=== PATIENT | male | born 1930 | race Caucasian/White ===

== ENCOUNTER 2017-10-18 06:51 | Inpatient (IN) | payer OTHER ==
--- NOTE | 2017-10-18 07:29 | PDOC ---
Attending Attestation - Resident Resident Name: Lulu Gutiérrez - ED Attending Attestation I have performed the following: I have examined & evaluated the patient, The case was reviewed & discussed with the resident, I agree w/resident's findings & plan, Exceptions are as noted - HPI HPI: 10/18/17 07:23 87 yo male with h/o aspiration pna, osteomyelitis, HTN, recently admitted to hospital, here today from home with for fever cough and feeling fatigue. pt is normally ambulatory but today was unable to walk due to weaknesss. no n/v had fever last pm . no abd pain. 10/18/17 09:45 - Physicial Exam PE: 10/18/17 07:25 awake alert dry mucous membranes. lungs with bilateral crackles at bases. normal resp effort. heart tachycardia, no mrg. abd soft mild periumbilical ttp, no rebound no guarding. skin warm and dry. right toe with ulcer small 0.5cm tip great toe. 2 + dp/ pt . no surroundin erythema. nuero moves all four ext. - Medical Decision Making 10/18/17 07:28 87 yo M with fever cough. differential uti, pneumonia, effusion. sepsis. renal failure. plan abx, tylenol ivf, cxr will admit ua lab lactates. Heart Score/ECG Review #1 General ECG Interpretation: Sinus Rhythm, Normal Intervals, No acute ischemic changes Compared to previous ECG there are: Other (tachycardic 117)
[2017-10-18] MEDS ORDERED: ACETAMINOPHEN 1000 MG/100 ML VIAL (NON FORMULARY) IVPB ONE (07:30)
--- NOTE | 2017-10-18 07:44 | PDOC ---
History of Present Illness - General Chief Complaint: Shortness of Breath Stated Complaint: WEAKNESS History Source: Patient, Spouse Exam Limitations: No Limitations - History of Present Illness Initial Comments: This is an 87 YOM with h/o sepsis, toe osteomyelitis (x2 episodes, most recent about 6 weeks ago, tx with several weeks of PO Augmentin), chronic dysphagia and aspiration PNA, UTI, PVD, HTN, and anxiety who p/w three days of malaise, fever, SOB, cough, and generalized weakness. The provides the bulk of his medical history. She notes that they are passing through town and had planned to drive home to [place] today, but she was unable to get him into the car this morning d/t his generalized weakness. She notes he has had a fever for the past two days, up to 100.3 at home today orally. She gave him Tylenol PO but he was only able to swallow one pill (underdosed) as well as his regular morning medications. She and the patient otherwise deny any new symptoms. Past History - Past Medical History Allergies/Adverse Reactions: Allergies Allergy/AdvReac Type Severity Reaction Status Date / Time No Known Allergies Allergy Verified 10/18/17 07:01 Home Medications: Ambulatory Orders Acetaminophen [Tylenol] 500 mg PO BID 10/18/17 Furosemide [Lasix] 40 mg PO BID 10/18/17 Losartan Potassium 50 mg PO BID 10/18/17 Prednisone 5 mg PO BID 10/18/17 Tramadol HCl 75 mg PO AM 10/18/17 - Suicide/Smoking/Psychosocial Hx Smoking History: Never smoked Have you smoked in the past 12 months: No Information on smoking cessation initiated: No Hx Alcohol Use: No Drug/Substance Use Hx: No Review of Systems - Review of Systems Able to Perform ROS?: Yes Constitutional: Yes: Fever, Malaise, Weakness. No: Unexplained wgt Loss HEENTM: No: Nose Congestion, Throat Pain Respiratory: Yes: Cough, Shortness of Breath Cardiac (ROS): No: Chest Pain, Palpitations ABD/GI: No: Constipated, Diarrhea, Nausea, Vomiting : No: Burning, Dysuria Musculoskeletal: No: Back Pain, Neck Pain Integumentary: No: Bruising, Rash Neurological: No: Headache, Numbness, Tingling, Dizziness Endocrine: No: Unexplained Weight Gain, Unexplained Weight Loss *Physical Exam - Vital Signs Last Vital Signs Temp Pulse Resp BP Pulse Ox 98.8 F 118 H 24 159/88 95 10/18/17 06:57 10/18/17 06:57 10/18/17 06:57 10/18/17 06:57 10/18/17 06:57 - Physical Exam General Appearance: Yes: Nourished, Appropriately Dressed, Other (awake and alert, pleasant elderly male whose face is flushed and who is accompanied by his at bedside, able to answer simple questions, states mentating and conversing at baseline, on nasal cannula). No: Apparent Distress HEENT: positive: EOMI, SHANTAL, Normal Voice, Hearing Grossly Normal. negative: Scleral Icterus (R), Scleral Icterus (L), Muffled/Hoarse voice, Nasal Congestion Neck: positive: Trachea midline, Supple. negative: Tender, Rigid Respiratory/Chest: positive: Lungs Clear, Normal Breath Sounds. negative: Respiratory Distress, Crackles, Rhonchi, Stridor, Wheezing Cardiovascular: positive: Regular Rhythm, Regular Rate, S1, S2, Edema (trace BLE but in compression stalkings). negative: JVD, Murmur Vascular Pulses: Dorsalis-Pedis (R): 2+, Doralis-Pedis (L): 2+ Gastrointestinal/Abdominal: positive: Normal Bowel Sounds, Tender (mild epigastric and umbilical ttp), Soft, Protuberent. negative: Organomegaly, Pulsatile Mass, Guarding, Hernia Musculoskeletal: positive: Normal Inspection. 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 negative: Tender, Cyanosis Integumentary: positive: Normal Color, Dry, Other (patient is overly warm to the touch). 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 negative: Facial Droop, Numbness, Confused Heart Score/ECG Review #1 Sinus tachycardia, rate 117, normal axis and intervals, no ischemic changes ED Treatment Course - LABORATORY CBC & Chemistry Diagram: 10/18/17 07:45 10/18/17 07:45 - RADIOLOGY Radiology Studies Ordered: Category Date Time Status FOOT-LEFT [RAD] Stat Radiology 10/18/17 07:37 Ordered FOOT-RIGHT [RAD] Stat Radiology 10/18/17 07:37 Ordered TOE(S) LEFT [RAD] Stat Radiology 10/18/17 07:37 Ordered TOE(S) RIGHT [RAD] Stat Radiology 10/18/17 07:37 Ordered Medical Decision Making - Medical Decision Making Elderly patient p/w fever, hypotension, and tachycardia. Initial Vital Signs Temp Pulse Resp BP Pulse Ox 98.8 F 118 H 24 159/88 95 10/18/17 06:57 10/18/17 06:57 10/18/17 06:57 10/18/17 06:57 10/18/17 06:57 Exam: On nasal cannula, awake and alert, able to answer simple questions, heart and lungs normal, abdomen protuberant and mild epigastric and umbilical ttp, compression stalkings on, bilateral great toes with chronic-appearing ulcers with mild crusting and mild surrounding erythema DDX IBNLT: sepsis/shock (i.e. osteomyelitis, UTI, PNA, cellulitis, meningitis, etc), PE, ischemia (ACS), medication effect, malignant hyperthermia, serotonin syndrome, etc. W/U ordered: EKG CXR CBCD CMP Mg Phos Cardiac panel Lactate BCx UA UCx TX ordered: IVF O2 Ofirmev EKG: Sinus tachycardia, rate 117, normal axis and intervals, no ischemic changes CXR: NADP Laboratory Tests 10/18/17 10/18/17 10/18/17 07:45 07:45 07:45 WBC 10.2 H RBC 4.02 Hgb 12.9 Hct 38.6 MCV 96.1 H MCH 32.1 MCHC 33.4 RDW 15.2 Plt Count 302 MPV 6.8 L Neutrophils % 78.4 Lymphocytes % 11.1 Monocytes % 8.7 Eosinophils % 1.4 Basophils % 0.4 PT with INR 11.20 INR 0.99 PTT (Actin FS) 30.4 VBG pH POC VBG pCO2 POC VBG pO2 Mixed VBG HCO3 Sodium 141 Potassium 3.9 Chloride 106 Carbon Dioxide 26 Anion Gap 9 BUN 22 H Creatinine 1.0 Creat Clearance w eGFR > 60 Random Glucose 109 H Lactic Acid Calcium 8.5 Total Bilirubin 0.7 AST 31 ALT 64 Alkaline Phosphatase 59 Troponin I Total Protein 6.1 L Albumin 2.9 L 10/18/17 10/18/17 10/18/17 07:45 07:45 08:00 WBC RBC Hgb Hct MCV MCH MCHC RDW Plt Count MPV Neutrophils % Lymphocytes % Monocytes % Eosinophils % Basophils % PT with INR INR PTT (Actin FS) VBG pH 7.45 H POC VBG pCO2 39.0 POC VBG pO2 44.9 Mixed VBG HCO3 26.1 H Sodium Potassium Chloride Carbon Dioxide Anion Gap BUN Creatinine Creat Clearance w eGFR Random Glucose Lactic Acid 2.7 H* Calcium Total Bilirubin AST ALT Alkaline Phosphatase Troponin I < 0.02 Total Protein Albumin Repeat VS: Reassessment: The patient is unsafe for discharge at this time. They require further hospital observation, workup, and treatment. Microblog sent to [facility] for admission. Spoke with [facility], in agreement patient to be admitted to: Med/Surg IP. Decision to Admit order placed to [facility] covering attending Dr. Dixon. *DC/Admit/Observation/Transfer Diagnosis at time of Disposition: Generalized weakness Sepsis Qualifiers: Sepsis type: sepsis due to unspecified organism Qualified Code(s): A41.9 - Sepsis, unspecified organism - Discharge Dispostion Condition at time of disposition: Guarded Decision to Admit order: Yes - Referrals - Patient Instructions - Post Discharge Activity
[2017-10-18] MEDS ORDERED: ACETAMINOPHEN INJECTION 100 ML IVPB ONE (08:02)
[2017-10-18 08:04] LABS: VENOUS PH 7.45 (7.32-7.42); VENOUS PO2 44.9 mmHg (28-48)
[2017-10-18 08:08] LABS: BASO % 0.4 % (0-2.0); EOS % 1.4 % (0-4.5); HEMATOCRIT 38.6 % (35.4-49); HEMOGLOBIN 12.9 GM/dL (11.7-16.9); LYMPH % 11.1 % (8-40); MCH 32.1 pg (25.7-33.7); MCHC 33.4 g/dl (32.0-35.9); MEAN CELL VOLUME 96.1 fl (80-96); MEAN PLT VOLUME 6.8 fl (7.5-11.1); MONO % 8.7 % (3.8-10.2); NEUT % 78.4 % (42.8-82.8); PLATELET COUNT 302 K/MM3 (134-434); RBC 4.02 M/mm3 (4.00-5.60); RDW 15.2 % (11.9-15.9); WHITE BLOOD COUNT 10.2 K/mm3 (4.0-10.0)
[2017-10-18 08:24] LABS: INR 0.99 (0.82-1.09); PROTHROMBIN TIME (PATIENT) 11.2 SEC (9.7-13.0)
[2017-10-18 08:26] LABS: ACTIVATED PTT 30.4 SECONDS (26.9-34.4)
[2017-10-18] MEDS ORDERED: SODIUM CHLORIDE 0.9% 1000 ML INFUS.BAG IV ONE (08:32)
[2017-10-18 08:37] LABS: ALBUMIN 2.9 g/dl (3.4-5.0); ANION GAP 9 (8-16); BLOOD UREA NITROGEN 22 mg/dL (7-18); CALCIUM 8.5 mg/dL (8.5-10.1); CHLORIDE 106 mmol/L (98-107); CO2 26 mmol/L (21-32); GLUCOSE,RANDOM 109 mg/dL (74-106); POTASSIUM 3.9 mmol/L (3.5-5.1); SODIUM 141 mmol/L (136-145)
[2017-10-18 08:41] LABS: ALK PHOS 59 U/L (45-117); BILIRUBIN,TOTAL 0.7 mg/dL (0.2-1.0); SGOT/AST 31 U/L (15-37); SGPT/ALT 64 U/L (12-78); TOT PROT 6.1 g/dl (6.4-8.2)
[2017-10-18] MEDS ORDERED: VANCOMYCIN 1,000 MG in DEXTROSE 5%-WATER - 250 ML IVPB ONE (09:36)
[2017-10-18] MEDS ORDERED: PIPERACILLIN/TAZOB 4.5 GM 4.5 GM in DEXTROSE 5%-WATER 100 ML IVPB ONE (09:36)
[2017-10-18] MEDS ORDERED: VANCOMYCIN 1 GRAM (PRE-DOCKED) 1,000 MG/250 ML BAG IVPB ONE (10:06)
[2017-10-18] MEDS ORDERED: PIPERACILLIN/TAZOB 4.5 GM 4.5 GM/100 ML BAG IVPB ONE (10:06)
[2017-10-18] MEDS ORDERED: SODIUM CHLORIDE 0.9% 500 ML INFUS.BAG IV ONE (10:34)
[2017-10-18] MEDS ORDERED: FUROSEMIDE 100 MG/10 ML INJECTABLE VIAL IVPB ONE (10:58)
[2017-10-18] MEDS ORDERED: methylPREDNISolone NA SUCC 40 MG/1 ML VIAL IVPUSH ONE (10:58)
[2017-10-18] MEDS ORDERED: methylPREDNISolone NA SUCC 40 MG/1 ML VIAL ONE (11:16)
[2017-10-18] MEDS: SODIUM CHLORIDE 1,000 ML IV SCH ×2 (12:56→22:52)
[2017-10-18] MEDS: HEPARIN NA (PORCINE) 5,000 UNITS/ML 1ML VIAL SQ SCH ×3 (13:00→21:27)
[2017-10-18] MEDS ORDERED: HEPARIN NA (PORCINE) 5,000 UNITS/ML 1ML VIAL ONE (13:08)
--- NOTE | 2017-10-18 13:16 | HP ---
CHIEF COMPLAINT: weakness, cough, malaise, fever PCP: PCP in [place] HISTORY OF PRESENT ILLNESS: History taken from pt's . 87 y/o M with PMH dementia, dysphagia w/ mult aspiration PNA, R great toe osteomyelitis (x2 episodes, most recent about 6 weeks ago, tx with several weeks of PO Augmentin), PVD, UTI, HTN, anxiety, baseline incontinence who presented to ED brought by because of 3 d of malaise, cough productive of green sputum (last night only), fever 100.3 measured at home, weakness, decreased PO intake last night, and constipation (no BM x 3 d). Pt was recently hospitalized for aspiration PNA in [place] for 5 days. ER course was notable for: (1) WBC 10.2, LA 2.7(dropped ot 1.9 after 2L NS), VBG: ph 7.45, pCO2 39, pO2 44.9, HCO3 26.1 (2) CXR atalectasis (3) Recent Travel: from [place] PAST MEDICAL HISTORY: dementia, dysphagia w/ mult aspiration PNA, R great toe osteomyelitis (x2 episodes, most recent about 6 weeks ago, tx with several weeks of PO Augmentin) , PVD, UTI, HTN, anxiety PAST SURGICAL HISTORY: Social History: Smoking: denies Alcohol: denies Drugs: denies Family History: denies Allergies No Known Allergies Allergy (Verified 10/18/17 07:01) HOME MEDICATIONS: Home Medications Medication Instructions Recorded Acetaminophen [Tylenol] 500 mg PO BID 10/18/17 Furosemide [Lasix] 40 mg PO BID 10/18/17 Losartan Potassium 50 mg PO BID 10/18/17 Prednisone 5 mg PO BID 10/18/17 Tramadol HCl 75 mg PO AM 10/18/17 REVIEW OF SYSTEMS CONSTITUTIONAL: fever, generalized weakness, malaise, loss of appetite Absent: , chills, diaphoresis, weight change HEENT: Absent: rhinorrhea, nasal congestion, throat pain, throat swelling, difficulty swallowing, mouth swelling, ear pain, eye pain, visual changes CARDIOVASCULAR: Absent: chest pain, syncope, palpitations, irregular heart rate, lightheadedness , peripheral edema RESPIRATORY: Absent: cough, shortness of breath, dyspnea with exertion, orthopnea, wheezing, stridor, hemoptysis GASTROINTESTINAL: constipation Absent: abdominal pain, abdominal distension, nausea, vomiting, diarrhea, , melena, hematochezia GENITOURINARY: Absent: dysuria, frequency, urgency, hesitancy, hematuria, flank pain, genital pain MUSCULOSKELETAL: Absent: myalgia, arthralgia, joint swelling, back pain, neck pain SKIN: Absent: rash, itching, pallor HEMATOLOGIC/IMMUNOLOGIC: Absent: easy bleeding, easy bruising, lymphadenopathy, frequent infections ENDOCRINE: Absent: unexplained weight gain, unexplained weight loss, heat intolerance, cold intolerance NEUROLOGIC: Absent: headache, focal weakness or paresthesias, dizziness, unsteady gait, seizure, mental status changes, bladder or bowel incontinence PSYCHIATRIC: Absent: anxiety, depression, suicidal or homicidal ideation, hallucinations. PHYSICAL EXAMINATION Vital Signs - 24 hr 10/18/17 10/18/17 10/18/17 06:57 08:15 08:33 Temperature 98.8 F 100.1 F H Pulse Rate 118 H Pulse Rate [ Apical] Respiratory 24 Rate Blood Pressure 159/88 Blood Pressure [Right Arm] O2 Sat by Pulse 95 98 Oximetry (%) 10/18/17 11:07 Temperature Pulse Rate Pulse Rate [ 103 H Apical] Respiratory 19 Rate Blood Pressure Blood Pressure 177/86 [Right Arm] O2 Sat by Pulse 96 Oximetry (%) GENERAL: Awake, alert, oriented to person, in no acute distress. HEAD: Normal with no signs of trauma. EYES: extraocular movements intact, sclera anicteric, conjunctiva clear. No lid lag. EARS, NOSE, THROAT: oropharynx clear without exudates. Moist mucous membranes. NECK: Normal range of motion, supple without lymphadenopathy, JVD, or masses. LUNGS: Breath sounds equal, clear to auscultation bilaterally. No wheezes, and no crackles appreciated. No accessory muscle use. HEART: Regular rate and rhythm, normal S1 and S2 without murmur, rub or gallop. ABDOMEN: Soft, nontender, distended, tympanic, normoactive bowel sounds, no guarding, no rebound, no masses. No hepatomegaly or splenomegaly. MUSCULOSKELETAL: Normal range of motion at all joints. No bony deformities or tenderness. No CVA tenderness. UPPER EXTREMITIES: 2+ pulses, warm, well-perfused. No cyanosis. No clubbing. No peripheral edema. LOWER EXTREMITIES: trace pulses, with chronic ulcer of R great toe, and small ulcer of L great toe. No calf tenderness. No peripheral edema. NEUROLOGICAL: Uncooperative. Normal speech. PSYCHIATRIC: Cooperative. Good eye contact. Appropriate mood and affect. SKIN: Warm, dry, normal turgor, no rashes or lesions noted, normal capillary refill. Laboratory Results - last 24 hr 10/18/17 10/18/17 10/18/17 07:45 07:45 07:45 WBC 10.2 H RBC 4.02 Hgb 12.9 Hct 38.6 MCV 96.1 H MCH 32.1 MCHC 33.4 RDW 15.2 Plt Count 302 MPV 6.8 L Neutrophils % 78.4 Lymphocytes % 11.1 Monocytes % 8.7 Eosinophils % 1.4 Basophils % 0.4 PT with INR 11.20 INR 0.99 PTT (Actin FS) 30.4 VBG pH POC VBG pCO2 POC VBG pO2 Mixed VBG HCO3 Sodium 141 Potassium 3.9 Chloride 106 Carbon Dioxide 26 Anion Gap 9 BUN 22 H Creatinine 1.0 Creat Clearance w eGFR > 60 Random Glucose 109 H Lactic Acid Calcium 8.5 Total Bilirubin 0.7 AST 31 ALT 64 Alkaline Phosphatase 59 Troponin I Total Protein 6.1 L Albumin 2.9 L 10/18/17 10/18/17 10/18/17 07:45 07:45 08:00 WBC RBC Hgb Hct MCV MCH MCHC RDW Plt Count MPV Neutrophils % Lymphocytes % Monocytes % Eosinophils % Basophils % PT with INR INR PTT (Actin FS) VBG pH 7.45 H POC VBG pCO2 39.0 POC VBG pO2 44.9 Mixed VBG HCO3 26.1 H Sodium Potassium Chloride Carbon Dioxide Anion Gap BUN Creatinine Creat Clearance w eGFR Random Glucose Lactic Acid 2.7 H* Calcium Total Bilirubin AST ALT Alkaline Phosphatase Troponin I < 0.02 Total Protein Albumin 10/18/17 10:41 WBC RBC Hgb Hct MCV MCH MCHC RDW Plt Count MPV Neutrophils % Lymphocytes % Monocytes % Eosinophils % Basophils % PT with INR INR PTT (Actin FS) VBG pH POC VBG pCO2 POC VBG pO2 Mixed VBG HCO3 Sodium Potassium Chloride Carbon Dioxide Anion Gap BUN Creatinine Creat Clearance w eGFR Random Glucose Lactic Acid 1.9 Calcium Total Bilirubin AST ALT Alkaline Phosphatase Troponin I Total Protein Albumin ASSESSMENT/PLAN: Pt is an 87 y/o M with PMH dementia, dysphagia w/ mult aspiration PNA, R great toe osteomyelitis (x2 episodes, most recent about 6 weeks ago, tx with several weeks of PO Augmentin), PVD, UTI, HTN, anxiety, baseline incontinence who presented to ED brought by because of 3 d of malaise, cough productive of green sputum (last night only), fever 100.3 measured at home, weakness, decreased PO intake last night, and constipation (no BM x 3 d). Pt was admitted for sepsis 2/2 HCAP. #Sepsis 2/2 HCAP -recent hospitalization in [place] fo 5 d for Aspiration PNA -fever, malaise, weakness, cough -leukocytosis, LA 2.7 -> 1.9 s/p 2L NS -CXR sig for atalectasis -Got Vanc/Zosyn in ED -ID consult -Zosyn for tomorrow. f/u ID recs on abx -NS -f/u repeat CBC in am -f/u UA. Pt urinated just prior to arriving in ED. Pending urine collection for UA. ED placed condom cath #Osetomyelitis -R great toe -Multiple prior episode -recently treated 6wk ago with several weeks Augmentin #PVD -poor pulses b/l LE -ulcers & osteo -monitored out pt with PCP in [place] #HTN -Resume home Losartan with holding parameters -Hold lasix in setting of sepsis #Dementia -managed by PCP as outpt -according to , mental status waxes and wanes #FEN -NS @ 85 -lytes wnl -dysphagia diet #PPx -HSQ TID #Dispo -admitted for sepsis 2/2 hcap Art Hays MD PGY-1 IM Visit type - Emergency Visit Emergency Visit: Yes Care time: The patient presented to the Emergency Department on the above date and was hospitalized for further evaluation of their emergent condition. - New Patient This patient is new to me today: Yes Date on this admission: 10/18/17 - Critical Care Critical Care patient: No Hospitalist Screening - Colonoscopy Questionnaire Colonoscopy Questionnaire: Colonoscopy Questionnaire - Patient: 50 - 75 years old and never had a screening colonoscopy: No History of colon or rectal polyps, or CA: No History of IBD, Crohn's disease or UC: No History of abdominal radiation therapy as a child: No - Relative: 1 with colon or rectal CA, or polyps at age 60 or younger: No Colon or rectal CA diagnosed at age 45 or younger: No Multiple relatives with colon or rectal CA: No - Outcome: Screening Result: Negative Screen
[2017-10-18] MEDS ORDERED: GLYCERIN 1 RECTAL SUPPOSITORY, ADULT PR ONE (13:29)
[2017-10-18 14:33] LABS: URINE APPEARANCE CLEAR; URINE BILIRUBIN NEGATIVE (<2.0 mg/dL); URINE COLOR LTYELLOW; URINE GLUCOSE (UA) NEGATIVE (NEGATIVE); URINE KETONE NEGATIVE (NEGATIVE); URINE LEUK ESTERASE NEGATIVE (NEGATIVE); URINE NITRITE NEGATIVE (NEGATIVE); URINE PROTEIN NEGATIVE (NEGATIVE); URINE UROBILINOGEN NEGATIVE mg/dL (0.2-1.0)
[2017-10-18 14:53] LABS: EPI CELLS RARE /HPF (FEW)
--- NOTE | 2017-10-18 15:09 | PN ---
Teaching Attending Note Name of Resident: Art Hays ATTENDING PHYSICIAN STATEMENT I saw and evaluated the patient. I reviewed the resident's note and discussed the case with the resident. I agree with the resident's findings and plan as documented. SUBJECTIVE: OBJECTIVE: ASSESSMENT AND PLAN: this is an 87 y/o M with PMH moderate dementia, dysphagia w/ mult aspiration PNA , R great toe osteomyelitis (x2 episodes, most recent about 6 weeks ago, tx with several weeks of PO Augmentin), PVD, UTI, HTN, anxiety, baseline incontinence who presented to ED brought by because of 3 d of malaise, cough productive of green sputum (last night only), fever 100.3 measured at home , weakness, decreased PO intake last night, and constipation (no BM x 3 d). Pt was admitted for sepsis 2/2 HCAP. #Sepsis 2/2 HCAP -recent hospitalization in [place] fo 5 d for Aspiration PNA -fever, malaise, weakness, cough -leukocytosis, LA 2.7 -> 1.9 s/p 2L NS -CXR sig for atalectasis -Got Vanc/Zosyn in ED -ID consult -f/u UA. #Osetomyelitis -R great toe -Multiple prior episode -recently treated 6wk ago with several weeks Augmentin #PVD -poor pulses b/l LE -ulcers & osteo #HTN -Resume home Losartan with holding parameters -Hold lasix in setting of sepsis #Dementia -managed by PCP as outpt -according to , mental status waxes and wanes #PPx -HSQ TID
[2017-10-18] MEDS ORDERED: PIPERACILLIN/TAZOB 3.375 GM/50 ML PRE-DOCKED IVPB SCH (18:00)
[2017-10-18] MEDS ORDERED: DEXTROSE 5%-WATER - 50 ML IVPB ONE (19:53)
[2017-10-18] MEDS ORDERED: PIPERACILLIN/TAZOBACTAM 3.375 GM VIAL IVPB ONE (19:53)
[2017-10-18] MEDS: PIPERACILLIN/TAZOB 3.375 GM 3.375 GM in DEXTROSE 5%-WATER - 50 ML IVPB SCH (19:59)
[2017-10-18] MEDS: LOSARTAN POTASSIUM 50 MG TABLET (FP) PO SCH (21:26)
[2017-10-18] MEDS: ACETAMINOPHEN 325 MG TABLET (FP) PO SCH (21:26)
[2017-10-18 23:10] VITALS: BMI 26.8
[2017-10-19] MEDS ORDERED: PIPERACILLIN/TAZOBACTAM 3.375 GM VIAL IVPB ONE ×2 (03:29→18:05)
[2017-10-19] MEDS ORDERED: DEXTROSE 5%-WATER - 50 ML IVPB ONE ×2 (03:30→18:05)
[2017-10-19] MEDS: PIPERACILLIN/TAZOB 3.375 GM 3.375 GM in DEXTROSE 5%-WATER - 50 ML IVPB SCH ×4 (03:32→19:15)
[2017-10-19] MEDS: HEPARIN NA (PORCINE) 5,000 UNITS/ML 1ML VIAL SQ SCH ×3 (05:48→22:05)
[2017-10-19 07:43] LABS: HEMATOCRIT 34.8 % (35.4-49); HEMOGLOBIN 11.8 GM/dL (11.7-16.9); MCH 32.4 pg (25.7-33.7); MCHC 33.8 g/dl (32.0-35.9); MEAN PLT VOLUME 7.2 fl (7.5-11.1); PLATELET COUNT 294 K/MM3 (134-434); RBC 3.62 M/mm3 (4.00-5.60); RDW 15.1 % (11.9-15.9); WHITE BLOOD COUNT 6.7 K/mm3 (4.0-10.0)
[2017-10-19 07:49] LABS: INR 0.92 (0.82-1.09); PROTHROMBIN TIME (PATIENT) 10.4 SEC (9.7-13.0)
[2017-10-19 08:10] LABS: ALBUMIN 2.4 g/dl (3.4-5.0); ANION GAP 9 (8-16); BILIRUBIN,TOTAL 0.6 mg/dL (0.2-1.0); BLOOD UREA NITROGEN 14 mg/dL (7-18); CALCIUM 7.8 mg/dL (8.5-10.1); CHLORIDE 110 mmol/L (98-107); CO2 24 mmol/L (21-32); GLUCOSE,RANDOM 102 mg/dL (74-106); MAGNESIUM 2.1 mg/dL (1.8-2.4); PHOSPHOROUS 3.3 mg/dL (2.5-4.9); SGOT/AST 35 U/L (15-37); SGPT/ALT 77 U/L (12-78); SODIUM 143 mmol/L (136-145); TOT PROT 5.3 g/dl (6.4-8.2)
[2017-10-19 08:11] LABS: ALK PHOS 50 U/L (45-117)
[2017-10-19] MEDS: LOSARTAN POTASSIUM 50 MG TABLET (FP) PO SCH ×2 (10:10→22:04)
[2017-10-19] MEDS: ACETAMINOPHEN 325 MG TABLET (FP) PO SCH (10:40)
[2017-10-19] MEDS: ACETAMINOPHEN 500 MG TABLET (FP) PO SCH ×2 (10:41→22:05)
--- NOTE | 2017-10-19 10:46 | CONSULT ---
Consultation: REQUESTING PROVIDER: CONSULT REQUEST: We have been asked to medically evaluate this patient for HCAP and possible OM. HISTORY OF PRESENT ILLNESS: 87M with PMH of dementia, Rheumatoid arthritis, dysphagia with multiple episodes of aspiration pna, Right great toe osteomyelitis, PVD, UTI, htn, anxiety, basline incontinence, brought to ED by for malaise and cough. Cough was productive of green sputum x 1 day. Pt recently hospitalized 8 weeks ago in [place] (where he lives) for 5 days for asp pna and osteomyelitis of Right great toe (s/p completion of 6 week course of po Augmentin). Pt currently denies cough, sob, chest pain, pain to evelio feet. Pt reports feeling better and wanting to go home. REVIEW OF SYSTEMS: CONSTITUTIONAL: Absent: fever, chills, diaphoresis HEENT: Absent: rhinorrhea, nasal congestion, throat pain, ear pain, eye pain, visual changes CARDIOVASCULAR: Absent: chest pain, palpitations, irregular heart rate RESPIRATORY: Absent: cough, shortness of breath, dyspnea with exertion, wheezing, stridor GASTROINTESTINAL: Absent: abdominal pain, abdominal distension, nausea, vomiting, diarrhea, constipation GENITOURINARY: Absent: dysuria, frequency, urgency, hesitancy, hematuria MUSCULOSKELETAL: Absent: myalgia, arthralgia, joint swelling, back pain, neck pain SKIN: Absent: rash, itching, pallor NEUROLOGIC: Absent: headache, focal weakness or paresthesias, dizziness PSYCHIATRIC: Absent: anxiety, depression PHYSICAL EXAMINATION Vital Signs - 24 hr 10/18/17 10/18/17 10/18/17 11:07 15:30 17:00 Temperature 99.1 F 99.1 F Pulse Rate Pulse Rate [ 103 H 112 H 98 H Apical] Respiratory 19 18 Rate Blood Pressure Blood Pressure 177/86 189/97 171/79 [Right Arm] O2 Sat by Pulse 96 96 97 Oximetry (%) 10/18/17 10/19/17 10/19/17 21:00 02:00 06:00 Temperature 99.1 F 98.8 F 97.1 F L Pulse Rate 112 H 93 H 94 H Pulse Rate [ Apical] Respiratory 18 18 18 Rate Blood Pressure 178/115 144/79 164/87 Blood Pressure [Right Arm] O2 Sat by Pulse 97 Oximetry (%) GENERAL: Awake, alert, and fully oriented, in no acute distress. LUNGS: Breath sounds equal, clear to auscultation bilaterally. No wheezes, and no crackles. No accessory muscle use. HEART: Regular rate and rhythm, normal S1 and S2 without murmur, rub or gallop. ABDOMEN: Soft, nontender, not distended, no guarding, no rebound, no masses. LOWER EXTREMITIES: Warm, well-perfused. No calf tenderness. No peripheral edema. Onychomyocosis to evelio great toes. PSYCHIATRIC: Cooperative. Good eye contact. Appropriate mood and affect. SKIN: Left great toe with 1cm eschar at tip of toe. Right great toe with 1cm eschar at interphalangeal joint. Laboratory Results - last 24 hr 10/18/17 10/18/17 10/18/17 07:45 08:00 10:41 WBC RBC Hgb Hct MCV MCH MCHC RDW Plt Count MPV Neutrophils % Lymphocytes % PT with INR INR PTT (Actin FS) VBG pH 7.45 H POC VBG pCO2 39.0 POC VBG pO2 44.9 Mixed VBG HCO3 26.1 H Sodium Potassium Chloride Carbon Dioxide Anion Gap BUN Creatinine Creat Clearance w eGFR Random Glucose Lactic Acid 2.7 H* 1.9 Calcium Phosphorus Magnesium Total Bilirubin AST ALT Alkaline Phosphatase Total Protein Albumin Urine Color Urine Appearance Urine pH Ur Specific [place] Urine Protein Urine Glucose (UA) Urine Ketones Urine Blood Urine Nitrite Urine Bilirubin Urine Urobilinogen Ur Leukocyte Esterase Urine WBC (Auto) Urine RBC (Auto) Ur Epithelial Cells 10/18/17 10/19/17 10/19/17 13:58 06:15 06:15 WBC 6.7 D RBC 3.62 L Hgb 11.8 Hct 34.8 L MCV 96.0 MCH 32.4 MCHC 33.8 RDW 15.1 Plt Count 294 MPV 7.2 L Neutrophils % No Result Required. Lymphocytes % No Result Required. PT with INR 10.40 INR 0.92 PTT (Actin FS) 37.0 H VBG pH POC VBG pCO2 POC VBG pO2 Mixed VBG HCO3 Sodium Potassium Chloride Carbon Dioxide Anion Gap BUN Creatinine Creat Clearance w eGFR Random Glucose Lactic Acid Calcium Phosphorus Magnesium Total Bilirubin AST ALT Alkaline Phosphatase Total Protein Albumin Urine Color Ltyellow Urine Appearance Clear Urine pH 5.0 Ur Specific [place] 1.015 Urine Protein Negative Urine Glucose (UA) Negative Urine Ketones Negative Urine Blood 2+ H Urine Nitrite Negative Urine Bilirubin Negative Urine Urobilinogen Negative Ur Leukocyte Esterase Negative Urine WBC (Auto) 7 Urine RBC (Auto) 31 Ur Epithelial Cells Rare 10/19/17 06:15 WBC RBC Hgb Hct MCV MCH MCHC RDW Plt Count MPV Neutrophils % Lymphocytes % PT with INR INR PTT (Actin FS) VBG pH POC VBG pCO2 POC VBG pO2 Mixed VBG HCO3 Sodium 143 Potassium 4.0 Chloride 110 H Carbon Dioxide 24 Anion Gap 9 BUN 14 D Creatinine 1.0 Creat Clearance w eGFR > 60 Random Glucose 102 Lactic Acid Calcium 7.8 L Phosphorus 3.3 Magnesium 2.1 Total Bilirubin 0.6 AST 35 ALT 77 D Alkaline Phosphatase 50 Total Protein 5.3 L Albumin 2.4 L Urine Color Urine Appearance Urine pH Ur Specific [place] Urine Protein Urine Glucose (UA) Urine Ketones Urine Blood Urine Nitrite Urine Bilirubin Urine Urobilinogen Ur Leukocyte Esterase Urine WBC (Auto) Urine RBC (Auto) Ur Epithelial Cells Active Medications Generic Name Dose Route Start Last Admin Trade Name Freq PRN Reason Stop Dose Admin Acetaminophen 500 mg 10/19/17 10:14 Tylenol - PO BID NIMCO Heparin Sodium (Porcine) 5,000 unit 10/18/17 22:00 10/19/17 05:48 Heparin - SQ 5,000 unit TID NIMCO Administration Sodium Chloride 1,000 mls @ 83 mls/hr 10/18/17 12:30 10/18/17 22:52 Normal Saline - IV 83 mls/hr ASDIR NIMCO Administration Piperacillin Sod/Tazobactam 50 mls @ 100 mls/hr 10/18/17 18:00 Sod 3.375 gm/ Dextrose IVPB Q8H-IV NIMCO Protocol Losartan Potassium 50 mg 10/18/17 22:00 10/19/17 10:10 Cozaar - PO 50 mg BID NIMCO Administration ASSESSMENT/PLAN: 87M with PMH of dementia, Rhematoid arthritis, dysphagia with multiple episodes of aspiration pna, Right great toe osteomyelitis, PVD, UTI, htn, anxiety, basline incontinence, brought to ED by for malaise and cough, admitted for HCAP. #Sepsis 2/2 HCAP vs RA flare-up -recent hospitalization in [place] fo 5 d for Aspiration PNA -Tmax 100.1 at 8:30am on 10/18/17, afebrile since then -leukocytosis resolved -lactic acidosis resolved -CXR sig for atalectasis -got Vanc/Zosyn in ED -blood cultures (-) x 24 hrs -urine culture (-) -continue Zosyn pending cultures - source not clear - likely respiratory infection vs flare-up of RA #Osteomyelitis -evelio foot xrays and evelio great toe xrays reveal evelio bunions to first MTP joint. No fractures, blastic or lytic changes. No OM. -recently completed 6wk course of Augmentin for Right great toe OM (off antibiotics for 2 weeks now) #Rhematoid arthritis -takes Prednisone and Cimzia at home - reports evelio wrist swelling yesterday and believes symptoms may be 2/2 RA flare-up Dispo: We will continue to follow the patient. Thank you for this consultative opportunity. Visit type - Emergency Visit Emergency Visit: Yes ED Registration Date: 10/18/17 Care time: The patient presented to the Emergency Department on the above date and was hospitalized for further evaluation of their emergent condition. - New Patient This patient is new to me today: Yes Date on this admission: 10/19/17 - Critical Care Critical Care patient: No
[2017-10-19 10:59] LABS: ANISOCYTOSIS 1+; MACROCYTOSIS 1+; PLATELET ESTIMATE NORMAL
[2017-10-19] MEDS ORDERED: traMADol HCL 50 MG TABLET PO PRN (15:02)
[2017-10-19] MEDS: SODIUM CHLORIDE 1,000 ML IV SCH (16:02)
--- NOTE | 2017-10-19 16:39 | PN ---
Teaching Attending Note Name of Resident: Art Hays ATTENDING PHYSICIAN STATEMENT I saw and evaluated the patient. I reviewed the resident's note and discussed the case with the resident. I agree with the resident's findings and plan as documented. SUBJECTIVE:asymptomatic. claims not coughing on his puree food and requesting solid food. denies CP, SOB, fever, chills, N/V/C/D reports that B/L wrists were swollen and painful and today has resolved OBJECTIVE: Last Vital Signs Temp Pulse Resp BP Pulse Ox 97.1 F L 94 H 18 164/87 97 10/19/17 06:00 10/19/17 06:00 10/19/17 06:00 10/19/17 06:00 10/18/17 21:00 General NAD CV S1 S2 RRR no murmur/rub/gallop Lungs CTA B/L no wheezing/rales/rhonchi Abdomen soft NT/ND Extremities B/L wrists some restriction in movement on pronation/supination. not swollen or tender. no DIP/PIP/MCP joint swelling noted R toe eschar at tip of toe. no drainage or surrounding erythema ASSESSMENT AND PLAN: 87yo M with PMH dementia, PVD, HTN, anxiety, dementia and dysphagia with recent hospitalization for aspiration PNA and was also treated with R foot OM with prolonged course of Augmentin presents to the hospital for generalized malaise, fever of 100.3 and decreased po intake 1. Severe sepsis with lactic acidosis- concern for aspiration PNA. Initial CXR not showing any infiltrate. recommended CT chest which is refusing at this time. she reports no coughing or choking while eating. does not want CT or swallow eval. states MBS was done 3x in the past month and was always fine. other concern is RA flare which is possible that improved with Medrol 10mg IV given in the ER. ID consulted to discuss abx course. started on vanco/zosyn in the ER will cont for now while awaiting ID eval. f/u Cx 2. HTN- above goal. start norvasc. titrate to optimize pressure. hold lasix at this time in setting of sepsis. 3. Dementia 4. PVD 5. R toe OM- does not appear infected at this time. XR not showing active infection 6. DVT ppx- hep sq
[2017-10-19] MEDS ORDERED: PIPERACILLIN/TAZOB 3.375 GM 3.375 GM in DEXTROSE 5%-WATER - 50 ML IVPB SCH (18:00)
[2017-10-19] MEDS: amLODIPine BESYLATE 2.5 MG TABLET (FP) PO SCH (18:17)
--- NOTE | 2017-10-19 20:21 | PN ---
Physical Exam: SUBJECTIVE: Patient seen and examined at bedside. No acute events. Afebrile overnight. OBJECTIVE: Vital Signs Period Temp Pulse Resp BP Sys/Ortiz Pulse Ox Last 24 Hr 97.1 F-99.1 F 93-112 18-18 144-178/79-115 97 GENERAL: The patient is awake, alert, and oriented to person, in no acute distress. HEAD: Normal with no signs of trauma. EYES: sclera anicteric, conjunctiva clear. No ptosis. ENT: oropharynx clear without exudates, moist mucous membranes. NECK: Trachea midline, full range of motion, supple. LUNGS: Breath sounds equal, clear to auscultation bilaterally, no wheezes, no crackles, no accessory muscle use. HEART: Regular rate and rhythm, S1, S2 without murmur, rub or gallop. ABDOMEN: Soft, nontender, nondistended, normoactive bowel sounds, no guarding, no rebound, no hepatosplenomegaly, no masses. EXTREMITIES: 1+ pulses, warm, well-perfused, no edema. B/l great toe ulcers. NEUROLOGICAL: Cranial nerves II through XII grossly intact. Normal speech, gait not observed. PSYCH: Normal mood, normal affect. SKIN: Warm, dry, normal turgor, no rashes or lesions noted Laboratory Results - last 24 hr 10/19/17 10/19/17 10/19/17 06:15 06:15 06:15 WBC 6.7 D RBC 3.62 L Hgb 11.8 Hct 34.8 L MCV 96.0 MCH 32.4 MCHC 33.8 RDW 15.1 Plt Count 294 MPV 7.2 L Neutrophils % No Result Required. Neutrophils % (Manual) 75.0 Band Neutrophils % 1.0 Lymphocytes % No Result Required. Lymphocytes % (Manual) 12.0 Monocytes % (Manual) 9 Eosinophils % (Manual) 1.0 Basophils % (Manual) 2.0 Myelocytes % (Man) 0 Promyelocytes % (Man) 0 Blast Cells % (Manual) 0 Nucleated RBC % 0 Metamyelocytes 0 Platelet Estimate Normal Anisocytosis 1+ Macrocytosis 1+ PT with INR 10.40 INR 0.92 PTT (Actin FS) 37.0 H Sodium 143 Potassium 4.0 Chloride 110 H Carbon Dioxide 24 Anion Gap 9 BUN 14 D Creatinine 1.0 Creat Clearance w eGFR > 60 Random Glucose 102 Calcium 7.8 L Phosphorus 3.3 Magnesium 2.1 Total Bilirubin 0.6 AST 35 ALT 77 D Alkaline Phosphatase 50 Total Protein 5.3 L Albumin 2.4 L Active Medications Generic Name Dose Route Start Last Admin Trade Name Freq PRN Reason Stop Dose Admin Acetaminophen 500 mg 10/19/17 10:14 10/19/17 10:41 Tylenol - PO 500 mg BID NIMCO Administration Amlodipine Besylate 2.5 mg 10/19/17 15:00 10/19/17 18:17 Norvasc - PO 2.5 mg DAILY NIMCO Administration Heparin Sodium (Porcine) 5,000 unit 10/18/17 22:00 10/19/17 16:05 Heparin - SQ 5,000 unit TID NIMCO Administration Sodium Chloride 1,000 mls @ 83 mls/hr 10/18/17 12:30 10/19/17 16:02 Normal Saline - IV Not Given ASDIR NIMCO Piperacillin Sod/Tazobactam 50 mls @ 100 mls/hr 10/18/17 18:00 10/19/17 19:15 Sod 3.375 gm/ Dextrose IVPB 100 mls/hr Q8H-IV NIMCO Administration Protocol Losartan Potassium 50 mg 10/18/17 22:00 10/19/17 10:10 Cozaar - PO 50 mg BID NIMCO Administration Tramadol HCl 75 mg 10/20/17 07:00 Ultram - PO AM NIMCO Tramadol HCl 25 mg 10/19/17 22:00 Ultram - PO HS NIMCO Tramadol HCl 50 mg 10/19/17 15:02 Ultram - PO Q6H PRN PAIN LEVEL 4 - 6 ASSESSMENT/PLAN: Pt is an 87 y/o M with PMH dementia, dysphagia w/ mult aspiration PNA, R great toe osteomyelitis (x2 episodes, most recent about 6 weeks ago, tx with several weeks of PO Augmentin), PVD, UTI, HTN, anxiety, baseline incontinence who presented to ED brought by because of 3 d of malaise, cough productive of green sputum (last night only), fever 100.3 measured at home, weakness, decreased PO intake last night, and constipation (no BM x 3 d). Pt was admitted for sepsis 2/2 HCAP. #Severe Sepsis 2/2 HCAP -recent hospitalization in [place] fo 5 d for Aspiration PNA -fever, malaise, weakness, cough -leukocytosis, LA 2.7 -> 1.9 s/p 2L NS -CXR sig for atalectasis -Got Vanc/Zosyn in ED -ID consulted -cont Zosyn -NS -U/A w/ 2+ blood, 7 WBC, 31 RBC -Pt's (decision maker) refusing CT chest and swallow eval. -Spoke with office of PCP in [place]. Records were sent to [facility] from his recent admission #Osetomyelitis -R great toe -Multiple prior episode -recently treated 6wk ago with several weeks Augmentin -on Zosyn -Tramadol #PVD -poor pulses b/l LE -ulcers & osteo -monitored out pt with PCP in [place] #HTN -Resume home Losartan with holding parameters -Hold lasix in setting of sepsis -Norvasc #Dementia -managed by PCP as outpt -according to , mental status waxes and wanes #FEN -NS @ 85 -lytes wnl -dysphagia diet #PPx -HSQ TID #Dispo -admitted for sepsis 2/2 hcap Art Hays MD PGY-1 IM Visit type - Emergency Visit Emergency Visit: No - New Patient This patient is new to me today: No - Critical Care Critical Care patient: No - Discharge Referral Referred to [facility] Med P.C.: No
[2017-10-19] MEDS: traMADol HCL 50 MG TABLET PO SCH (22:09)
--- NOTE | 2017-10-20 00:11 | EKG ---
Test Reason : Blood Pressure : / mmHG Vent. Rate : 117 BPM Atrial Rate : 117 BPM P-R Int : 132 ms QRS Dur : 082 ms QT Int : 324 ms P-R-T Axes : 034 -15 -05 degrees QTc Int : 451 ms SINUS TACHYCARDIA OTHERWISE NORMAL ECG NO PREVIOUS ECGS AVAILABLE Confirmed by MARCUS LISA MD ([id number]) on 10/20/2017 12:11:34 AM Referred By: Confirmed By:MARCUS LISA MD
[2017-10-20] MEDS ORDERED: PIPERACILLIN/TAZOBACTAM 3.375 GM VIAL IVPB ONE ×2 (01:14→10:45)
[2017-10-20] MEDS ORDERED: DEXTROSE 5%-WATER - 50 ML IVPB ONE ×2 (01:14→10:45)
[2017-10-20] MEDS: PIPERACILLIN/TAZOB 3.375 GM 3.375 GM in DEXTROSE 5%-WATER - 50 ML IVPB SCH ×2 (02:19→10:48)
[2017-10-20] MEDS: HEPARIN NA (PORCINE) 5,000 UNITS/ML 1ML VIAL SQ SCH ×3 (06:08→22:37)
[2017-10-20] MEDS: traMADol HCL 50 MG TABLET PO SCH ×2 (06:08→22:39)
[2017-10-20 08:22] LABS: BASO % 0.8 % (0-2.0); EOS % 2.3 % (0-4.5); HEMATOCRIT 36.3 % (35.4-49); HEMOGLOBIN 12.1 GM/dL (11.7-16.9); LYMPH % 19.6 % (8-40); MCH 32.1 pg (25.7-33.7); MCHC 33.4 g/dl (32.0-35.9); MEAN CELL VOLUME 96.1 fl (80-96); MEAN PLT VOLUME 6.9 fl (7.5-11.1); MONO % 9.4 % (3.8-10.2); NEUT % 67.9 % (42.8-82.8); PLATELET COUNT 310 K/MM3 (134-434); RBC 3.78 M/mm3 (4.00-5.60); RDW 15.2 % (11.9-15.9); WHITE BLOOD COUNT 8.7 K/mm3 (4.0-10.0)
--- NOTE | 2017-10-20 09:02 | PN ---
Physical Exam: SUBJECTIVE: Patient seen and examined at bedside. Pt's present as usual. asking if pt can have prednisone or other treatment as she believes he is having RA flare. Painful wrists, fingers, knees. Pt admits to painful joints. OBJECTIVE: Vital Signs Period Temp Pulse Resp BP Sys/Ortiz Pulse Ox Last 24 Hr 98.9 F-99.6 F 99-117 18-20 160-188/82-93 GENERAL: The patient is awake, alert, oriented to person, in no acute distress. HEAD: Normal with no signs of trauma. EYES: sclera anicteric, conjunctiva clear. No ptosis. ENT: oropharynx clear without exudates, moist mucous membranes. NECK: Trachea midline, full range of motion, supple. LUNGS: Breath sounds equal, clear to auscultation bilaterally, no wheezes, no crackles, no accessory muscle use. HEART: Regular rate and rhythm, S1, S2 without murmur, rub or gallop. ABDOMEN: Soft, mildly tender, mildly distended and tympanic, normoactive bowel sounds, subtle guarding, no rebound, no hepatosplenomegaly, no masses. EXTREMITIES: swollen painful wrists, DIPs, R knee. 2+ pulses, warm, well- perfused, no edema. NEUROLOGICAL: Cranial nerves II through XII grossly intact. Normal speech, gait not observed. PSYCH: Normal mood, normal affect. SKIN: Warm, dry, normal turgor, no rashes or lesions noted Laboratory Results - last 24 hr 10/19/17 10/20/17 06:15 07:35 WBC 8.7 RBC 3.78 L Hgb 12.1 Hct 36.3 MCV 96.1 H MCH 32.1 MCHC 33.4 RDW 15.2 Plt Count 310 MPV 6.9 L Neutrophils % 67.9 Neutrophils % (Manual) 75.0 Band Neutrophils % 1.0 Lymphocytes % 19.6 D Lymphocytes % (Manual) 12.0 Monocytes % 9.4 Monocytes % (Manual) 9 Eosinophils % 2.3 Eosinophils % (Manual) 1.0 Basophils % 0.8 Basophils % (Manual) 2.0 Myelocytes % (Man) 0 Promyelocytes % (Man) 0 Blast Cells % (Manual) 0 Nucleated RBC % 0 0 Metamyelocytes 0 Platelet Estimate Normal Anisocytosis 1+ Macrocytosis 1+ Active Medications Generic Name Dose Route Start Last Admin Trade Name Freq PRN Reason Stop Dose Admin Acetaminophen 500 mg 10/19/17 10:14 10/19/17 22:05 Tylenol - PO 500 mg BID NIMCO Administration Amlodipine Besylate 2.5 mg 10/19/17 15:00 10/19/17 18:17 Norvasc - PO 2.5 mg DAILY NIMCO Administration Heparin Sodium (Porcine) 5,000 unit 10/18/17 22:00 10/20/17 06:08 Heparin - SQ 5,000 unit TID NIMCO Administration Sodium Chloride 1,000 mls @ 83 mls/hr 10/18/17 12:30 10/19/17 16:02 Normal Saline - IV Not Given ASDIR NIMCO Piperacillin Sod/Tazobactam 50 mls @ 100 mls/hr 10/18/17 18:00 10/20/17 02:19 Sod 3.375 gm/ Dextrose IVPB 100 mls/hr Q8H-IV NIMCO Administration Protocol Losartan Potassium 50 mg 10/18/17 22:00 10/19/17 22:04 Cozaar - PO 50 mg BID NIMCO Administration Tramadol HCl 75 mg 10/20/17 07:00 10/20/17 06:08 Ultram - PO 75 mg AM NIMCO Administration Tramadol HCl 25 mg 10/19/17 22:00 10/19/17 22:09 Ultram - PO Not Given HS NIMCO Tramadol HCl 50 mg 10/19/17 15:02 10/19/17 22:09 Ultram - PO 50 mg Q6H PRN Administration PAIN LEVEL 4 - 6 ASSESSMENT/PLAN: Pt is an 87 y/o M with PMH dementia, dysphagia w/ mult aspiration PNA, R great toe osteomyelitis (x2 episodes, most recent about 6 weeks ago, tx with several weeks of PO Augmentin), PVD, UTI, HTN, anxiety, baseline incontinence who presented to ED brought by because of 3 d of malaise, cough productive of green sputum (last night only), fever 100.3 measured at home, weakness, decreased PO intake last night, and constipation (no BM x 3 d). Pt was admitted for sepsis 2/2 HCAP. #Severe Sepsis 2/2 HCAP -recent hospitalization in [place] fo 5 d for Aspiration PNA. Records in chart -fever, malaise, weakness, cough -leukocytosis, LA 2.7 -> 1.9 s/p 2L NS -CXR sig for atalectasis -Got Vanc/Zosyn in ED -ID consulted -cont Zosyn. Per ID, pt can be switched to PO on D/C -NS -U/A w/ 2+ blood, 7 WBC, 31 RBC #Osetomyelitis -R great toe -Multiple prior episode -recently treated 6wk ago with several weeks Augmentin -on Zosyn -Tramadol #RA -Pt has hx RA -RA flare this morning. Painful, swollen wrists, DIPs, R knee -Prednisone 5 BID -Rheum (Dr. Trejo) consulted #PVD -poor pulses b/l LE -ulcers & osteo -monitored out pt with PCP in [place] #HTN -Resume home Losartan with holding parameters -Hold lasix in setting of sepsis -Norvasc #Dementia -managed by PCP as outpt -according to , mental status waxes and wanes #Constipation -Bowel regimen: Miralax, senna, colace #FEN -NS @ 85 -lytes wnl -dysphagia whole diet #PPx -HSQ TID -PT ordered #Dispo -admitted for sepsis 2/2 hcap Art Hays MD PGY-1 IM Visit type - Emergency Visit Emergency Visit: No - New Patient This patient is new to me today: No - Critical Care Critical Care patient: No - Discharge Referral Referred to [facility] Med P.C.: No
[2017-10-20] MEDS: predniSONE 5 MG TABLET (UD) PO SCH ×2 (10:47→22:39)
[2017-10-20] MEDS: ACETAMINOPHEN 500 MG TABLET (FP) PO SCH ×2 (10:47→22:38)
[2017-10-20] MEDS: DOCUSATE SODIUM 100 MG CAPSULE (FP) PO SCH ×2 (10:47→22:38)
[2017-10-20] MEDS: LOSARTAN POTASSIUM 50 MG TABLET (FP) PO SCH ×2 (10:48→22:37)
[2017-10-20] MEDS: amLODIPine BESYLATE 2.5 MG TABLET (FP) PO SCH (10:48)
[2017-10-20] MEDS: POLYETHYLENE GLYCOL 3350 119 GM BTL PO SCH (11:14)
--- NOTE | 2017-10-20 11:45 | CONSULT ---
Admitting History and Physical - Primary Care Physician PCP: Andrew Nguyen - Admission History of Present Illness: Per admission note: 87 y/o M with PMH dementia, dysphagia w/ mult aspiration PNA, R great toe osteomyelitis (x2 episodes, most recent about 6 weeks ago, tx with several weeks of PO Augmentin), PVD, UTI, HTN, anxiety, baseline incontinence who presented to ED brought by because of 3 d of malaise, cough productive of green sputum (last night only), fever 100.3 measured at home, weakness, decreased PO intake last night, and constipation (no BM x 3 d). Pt was recently hospitalized for aspiration PNA in [place] for 5 days. Pt's reports one previous PNA, 6 weeks ago in [place], suspected as aspiration. Pt had 3 bedside sw evals by different therapists as well as a MBS , and f/u by sp path via home care upon d/c. He was on a reg diet/thin liquid with mostly good tolerance. Occasional cough noted. He dislikes brushing his teeth and has mouth care "maybe once daily". He uses a CPAP every night, and has used machine his here as well. Dry mouth, uses artificial saliva/moistening agent. History Source: Family Member Limitations to Obtaining History: Clinical Condition, Dementia - Smoking History Smoking history: Never smoked Have you smoked in the past 12 months: No - Alcohol/Substance Use Hx Alcohol Use: No History - Admission Reason For Visit: SEPSIS, WEAKNESS - Diagnostics X-ray: Report Reviewed CT Scan: Report Reviewed - General Mental Status: Awake and Alert, Able to Follow Commands, Forgetful, Vague, Confused Attention: Distractible Ability to Follow Directions: Fair Head/Neck Control: Fair - Hearing Hearing: Normal Speech Evaluation - Communication Primary Language: GREEK Communication: Yes: Simple Responses Oral Expression Ability: Yes: Mild Impairment, Moderate Impairment - Speech Production Intelligibility: Yes: Mildly Impaired - Speech Characteristics Voice Loudness: Mildly Soft/Quiet Voice Pitch: Yes: Normal Voice Phonatory-based Quality: Yes: Normal Speech Pattern: Impaired Speech Clarity: < 75% Nasal Resonance: Normal Articulation: Yes: Imprecise Rate of Speech: Too Fast - Language/Verbal Expression Aphasia: Yes: Anomia Functional Communication Status: Yes: Mildly Impaired, Moderately Impaired - Swallow Evaluation/Bedside Assessment Current Nutritional Intake: Dysphagia Minced, Thin Liquids Oral Secretions: Yes: WFL Dentition: Yes: Adequate Facial Symmetry at Rest: Symmetrical Facial Symmetry on Retraction: Symmetrical Against Resistance Opening: Weak Against Resistance Closing: Weak Pucker Lips: Reduced ROM Smile: Reduced ROM Lingual Movement Strgth Against Opposition: Reduced Laryngeal Movement: Able to Palpate Rate of Intake: WFL Bolus Size: WFL Labial Seal: WFL Chewing: WFL Oral Prep Time: WFL A-P Transit: WFL Pocketing: None Timing of Swallow: WFL Coughing/Throat Clear: No Change in Voice: No Recommendations - Speech Evaluation, Impression/Plan Impression: Swallow is brisk. I suspect occasional aspiration if pt becomes distracted. Dry mouth and limited mouth care increase risk of adverse affects of aspiration, especially with use of CPAP machine. - Dysphagia Impressions/Plan Dysphagia Impressions: Risk of Aspiration, Ongoing Evaluation *Silent aspiration: cannot be R/O at bedside Dysphagia Treatment Plan: Chin Tuck/Down, Clear Pocket Food, 1/2 tsp. at a time , Elevate HOB during feed, OOB for meals (if possible), OOB for 1 h. after meals , Other (MOUTH CARE BEFORE AND AFTER EACH MEAL< and before cpap use>) Recommendations: Modified Barium Swallow (FAMILY WILL OBTAIN COPY OF RECENT STUDY) - Recommendations Diet Consistency: Dysphagia Whole Medication Administration: Whole with water Liquids: Thin Liquids
--- NOTE | 2017-10-20 12:23 | PN ---
Addendum entered and electronically signed by Pretty Hou, RESIDENT 17:19: Plan discussed with Dr. Marrero. Original Note: Physical Exam: SUBJECTIVE: Patient seen and examined. at bedside. Pt denies joint pain. Pt denies chest pain, sob, cough, abdominal pain, fever, chills. OBJECTIVE: Vital Signs Period Temp Pulse Resp BP Sys/Ortiz Pulse Ox Last 24 Hr 98.9 F-99.6 F 112-118 20-22 162-188/80-93 GENERAL: Awake, alert, and fully oriented, in no acute distress. LUNGS: Breath sounds equal, clear to auscultation bilaterally. No wheezes, and no crackles. No accessory muscle use. HEART: Regular rate and rhythm, normal S1 and S2 without murmur, rub or gallop. ABDOMEN: Soft, nontender, not distended, no guarding, no rebound, no masses. UPPER EXTREMITIES: evelio wrists swollen and warm, though pt denies pain. LOWER EXTREMITIES: Right knee swollen, nontender. Warm, well-perfused. No calf tenderness. No peripheral edema. Onychomyocosis to evelio great toes. PSYCHIATRIC: Cooperative. Good eye contact. Appropriate mood and affect. SKIN: Left great toe with 1cm eschar at tip of toe. Right great toe with 1cm eschar at interphalangeal joint. Laboratory Results - last 24 hr 10/20/17 07:35 WBC 8.7 RBC 3.78 L Hgb 12.1 Hct 36.3 MCV 96.1 H MCH 32.1 MCHC 33.4 RDW 15.2 Plt Count 310 MPV 6.9 L Neutrophils % 67.9 Lymphocytes % 19.6 D Monocytes % 9.4 Eosinophils % 2.3 Basophils % 0.8 Nucleated RBC % 0 Active Medications Generic Name Dose Route Start Last Admin Trade Name Freq PRN Reason Stop Dose Admin Acetaminophen 500 mg 10/19/17 10:14 10/20/17 10:47 Tylenol - PO 500 mg BID NIMCO Administration Amlodipine Besylate 2.5 mg 10/19/17 15:00 10/20/17 10:48 Norvasc - PO 2.5 mg DAILY NIMCO Administration Docusate Sodium 100 mg 10/20/17 10:00 10/20/17 10:47 Colace - PO 100 mg BID NIMCO Administration Heparin Sodium (Porcine) 5,000 unit 10/18/17 22:00 10/20/17 06:08 Heparin - SQ 5,000 unit TID NIMCO Administration Sodium Chloride 1,000 mls @ 83 mls/hr 10/18/17 12:30 10/19/17 16:02 Normal Saline - IV Not Given ASDIR NIMCO Piperacillin Sod/Tazobactam 50 mls @ 100 mls/hr 10/18/17 18:00 10/20/17 10:48 Sod 3.375 gm/ Dextrose IVPB 100 mls/hr Q8H-IV NIMCO Administration Protocol Losartan Potassium 50 mg 10/18/17 22:00 10/20/17 10:48 Cozaar - PO 50 mg BID NIMCO Administration Polyethylene Glycol 17 gm 10/20/17 10:00 10/20/17 11:14 Miralax (For Daily Use) - PO Not Given DAILY NIMCO Prednisone 5 mg 10/20/17 10:00 10/20/17 10:47 Deltasone - PO 5 mg BID NIMCO Administration Senna 2 tab 10/20/17 22:00 Senna - PO HS NIMCO Tramadol HCl 75 mg 10/20/17 07:00 10/20/17 06:08 Ultram - PO 75 mg AM NIMCO Administration Tramadol HCl 25 mg 10/19/17 22:00 10/19/17 22:09 Ultram - PO Not Given HS NIMCO Tramadol HCl 50 mg 10/19/17 15:02 10/19/17 22:09 Ultram - PO 50 mg Q6H PRN Administration PAIN LEVEL 4 - 6 ASSESSMENT/PLAN: 87M with PMH of dementia, Rhematoid arthritis, dysphagia with multiple episodes of aspiration pna, Right great toe osteomyelitis, PVD, UTI, htn, anxiety, basline incontinence, brought to ED by for malaise and cough, admitted for HCAP. # Sepsis 2/2 RA flare-up vs HCAP - evelio wrists swollen and warm, nontender since Tramadol received this am - Chest CT -> bibasilar atelectasis with small evelio pleural effusions - afebrile - blood cultures (-) x 48 hrs - D/C IV Zosyn # Rhematoid arthritis - home dose of Prednisone resumed - Rheumatology Consult Visit type - Emergency Visit Emergency Visit: Yes ED Registration Date: 10/18/17 Care time: The patient presented to the Emergency Department on the above date and was hospitalized for further evaluation of their emergent condition. - New Patient This patient is new to me today: No - Critical Care Critical Care patient: No
[2017-10-20] MEDS: SODIUM CHLORIDE 1,000 ML IV SCH (13:05)
--- NOTE | 2017-10-20 17:35 | PN ---
Teaching Attending Note Name of Resident: Art Hays ATTENDING PHYSICIAN STATEMENT I saw and evaluated the patient. I reviewed the resident's note and discussed the case with the resident. I agree with the resident's findings and plan as documented with exceptions below. SUBJECTIVE: Patient seen and examined. no complaints. On further questioning, reports some bilateral wrist and right knee pain. OBJECTIVE: Vital Signs Period Temp Pulse Resp BP Sys/Ortiz Pulse Ox Last 24 Hr 98.4 F-99.6 F 112-118 18-22 140-188/80-93 Intake & Output 10/17/17 10/18/17 10/19/17 10/20/17 23:59 23:59 23:59 23:59 Intake Total 2350 3285 781 Balance 2350 3285 781 Weight 176 lb 8 oz General: sitting in bed, mild tachypnea Extremities: bilateral wrist swelling and right knee swelling. Some limitation in ROM right knee (per , similar prior history with acute flare of RA) Chest: poor effort, few basilar rales Abdomen: soft, obese, NT Home Medication List Medication Instructions Recorded Confirmed Type Acetaminophen [Tylenol] 500 mg PO BID 10/18/17 10/18/17 History Furosemide [Lasix] 40 mg PO BID 10/18/17 10/18/17 History Losartan Potassium 50 mg PO BID 10/18/17 10/18/17 History Prednisone 5 mg PO BID 10/18/17 10/18/17 History Tramadol HCl 75 mg PO AM 10/18/17 10/18/17 History Active Medications Generic Name Dose Route Start Last Admin Trade Name Freq PRN Reason Stop Dose Admin Acetaminophen 500 mg 10/19/17 10:14 10/20/17 10:47 Tylenol - PO 500 mg BID NIMCO Administration Amlodipine Besylate 2.5 mg 10/19/17 15:00 10/20/17 10:48 Norvasc - PO 2.5 mg DAILY NIMCO Administration Docusate Sodium 100 mg 10/20/17 10:00 10/20/17 10:47 Colace - PO 100 mg BID NIMCO Administration Heparin Sodium (Porcine) 5,000 unit 10/18/17 22:00 10/20/17 15:22 Heparin - SQ 5,000 unit TID NIMCO Administration Sodium Chloride 1,000 mls @ 83 mls/hr 10/18/17 12:30 10/20/17 13:05 Normal Saline - IV Not Given ASDIR NIMCO Losartan Potassium 50 mg 10/18/17 22:00 10/20/17 10:48 Cozaar - PO 50 mg BID NIMCO Administration Polyethylene Glycol 17 gm 10/20/17 10:00 10/20/17 11:14 Miralax (For Daily Use) - PO Not Given DAILY NIMCO Prednisone 5 mg 10/20/17 10:00 10/20/17 10:47 Deltasone - PO 5 mg BID NIMCO Administration Senna 2 tab 10/20/17 22:00 Senna - PO HS NIMCO Tramadol HCl 75 mg 10/20/17 07:00 10/20/17 06:08 Ultram - PO 75 mg AM NIMCO Administration Tramadol HCl 25 mg 10/19/17 22:00 10/19/17 22:09 Ultram - PO Not Given HS NIMCO Tramadol HCl 50 mg 10/19/17 15:02 10/19/17 22:09 Ultram - PO 50 mg Q6H PRN Administration PAIN LEVEL 4 - 6 Laboratory Results - last 24 hr 10/20/17 07:35 WBC 8.7 RBC 3.78 L Hgb 12.1 Hct 36.3 MCV 96.1 H MCH 32.1 MCHC 33.4 RDW 15.2 Plt Count 310 MPV 6.9 L Neutrophils % 67.9 Lymphocytes % 19.6 D Monocytes % 9.4 Eosinophils % 2.3 Basophils % 0.8 Nucleated RBC % 0 Microbiology 10/18/17 08:32 Blood - Peripheral Venous Blood Culture - Preliminary NO GROWTH OBTAINED AFTER 48 HOURS, INCUBATION TO CONTINUE FOR 3 DAYS. 10/18/17 08:32 Blood - Peripheral Venous Blood Culture - Preliminary NO GROWTH OBTAINED AFTER 48 HOURS, INCUBATION TO CONTINUE FOR 3 DAYS. 10/18/17 13:58 Urine - Urine Clean Catch Urine Culture - Final NO GROWTH OBTAINED 10/18/17 14:54 Nasopharyngeal Swab Influenza Types A,B Antigen (MARY) - Final 10/18/17 14:54 Nasopharyngeal Swab - Final CXr bibasilar atelectasis vs consolidation with b/l pleural effusions ASSESSMENT AND PLAN: 87yo M with PMH dementia, PVD, HTN, anxiety, dementia and dysphagia with recent hospitalization for aspiration PNA and was also treated with R foot OM with prolonged course of Augmentin presents to the hospital for generalized malaise, fever of 100.3 and decreased po intake -Severe sepsis with lactic acidosis, ?Aspiration PNA -Fevers, ?Aspiration PNA vs RA flare -polyarticular swelling, likely RA flare given similar prior presentation -HTN -PVD -Recent Right toe Osteomyelitis off antibiotics -PVD Plan: Doing well, ID input noted, off zosyn. CT chest noted. Speech/swallow input noted. Aspiration precautions. Resume prednisone 5 mg BID. Rheumatology input Dr. Trejo. Patient has follow up in [place]. [facility]. Hold lasix inhouse. (per on it for ?BP) Foot xray no evidence of acute infection, no clinical concerns currently. DVTPPX heparin Dispo in 24 hours if improves on steroids and no new concerns. Plan discussed with in detail, all questions answered.
[2017-10-20] MEDS ORDERED: SENNOSIDES 8.6MG TABLET (FP) PO SCH (22:00)
[2017-10-21 07:59] LABS: BASO % 0.3 % (0-2.0); EOS % 1.1 % (0-4.5); HEMATOCRIT 34.6 % (35.4-49); HEMOGLOBIN 11.4 GM/dL (11.7-16.9); LYMPH % 13.8 % (8-40); MCH 31.5 pg (25.7-33.7); MEAN CELL VOLUME 95.4 fl (80-96); MONO % 8.6 % (3.8-10.2); NEUT % 76.2 % (42.8-82.8); PLATELET COUNT 288 K/MM3 (134-434); RBC 3.63 M/mm3 (4.00-5.60); RDW 15.1 % (11.9-15.9)
[2017-10-21] MEDS: traMADol HCL 50 MG TABLET PO SCH (08:30)
[2017-10-21] MEDS: HEPARIN NA (PORCINE) 5,000 UNITS/ML 1ML VIAL SQ SCH ×2 (08:30→14:50)
[2017-10-21 08:35] LABS: CHLORIDE 112 mmol/L (98-107); POTASSIUM 4.2 mmol/L (3.5-5.1); SODIUM 144 mmol/L (136-145)
[2017-10-21 08:42] LABS: ALBUMIN 2.3 g/dl (3.4-5.0); ALK PHOS 47 U/L (45-117); ANION GAP 10 (8-16); BILIRUBIN,TOTAL 0.7 mg/dL (0.2-1.0); BLOOD UREA NITROGEN 10 mg/dL (7-18); CALCIUM 7.5 mg/dL (8.5-10.1); CO2 22 mmol/L (21-32); CREATININE 0.8 mg/dL (0.7-1.3); GLUCOSE,RANDOM 106 mg/dL (74-106); SGOT/AST 25 U/L (15-37); SGPT/ALT 66 U/L (12-78); TOT PROT 5.2 g/dl (6.4-8.2)
[2017-10-21] MEDS ORDERED: amLODIPine BESYLATE 5 MG TABLET (FP) PO SCH (10:00)
[2017-10-21] MEDS: DOCUSATE SODIUM 100 MG CAPSULE (FP) PO SCH (11:02)
[2017-10-21] MEDS: ACETAMINOPHEN 500 MG TABLET (FP) PO SCH (11:02)
[2017-10-21] MEDS: LOSARTAN POTASSIUM 50 MG TABLET (FP) PO SCH (11:02)
[2017-10-21] MEDS: predniSONE 5 MG TABLET (UD) PO SCH (11:03)
[2017-10-21] MEDS: POLYETHYLENE GLYCOL 3350 119 GM BTL PO SCH (11:03)
--- NOTE | 2017-10-21 12:33 | PN ---
Progress Note, GENETIC TECHNOLOGIST - Note Progress Note: Selected Entries 10/20/17 10/20/17 10/20/17 02:26 06:21 10:00 Breakfast Lunch Supper Temperature 98.9 F 99.6 F 99.0 F 10/20/17 10/20/17 10/20/17 10:56 14:56 17:45 Breakfast 50% Lunch 50% Supper Temperature 98.4 F 99.2 F 10/20/17 10/20/17 10/21/17 21:46 22:00 07:28 Breakfast Lunch Supper 50% Temperature 99.0 F 97.8 F Diet upgraded to dys whole/thin liquid. Pt with mod to severe dementia. She reports h/o one incident of PNA. Pt tolerating upgraded diet well. Increased frequency of mouth care. Pending d/c to NH.
[2017-10-21 13:17] VITALS: BP 146/95; PULSE 101; TEMP 98.8
[2017-10-21] MEDS: SODIUM CHLORIDE 1,000 ML IV SCH (13:42)
--- NOTE | 2017-10-21 19:57 | DS ---
Physical Exam: SUBJECTIVE: Patient seen and examined At bedside. No complaints. Vital Signs Period Temp Pulse Resp BP Sys/Ortiz Pulse Ox Last 24 Hr 97.8 F-99.0 F 96-112 18-20 146-202/90-115 PHYSICAL EXAM GENERAL: The patient is awake, alert, oriented to person, in no acute distress. HEAD: Normal with no signs of trauma. EYES: sclera anicteric, conjunctiva clear. No ptosis. ENT: oropharynx clear without exudates, moist mucous membranes. NECK: Trachea midline, full range of motion, supple. LUNGS: Breath sounds equal, clear to auscultation bilaterally, no wheezes, no crackles, no accessory muscle use. HEART: Regular rate and rhythm, S1, S2 without murmur, rub or gallop. ABDOMEN: Soft, mildly tender, mildly distended and tympanic, normoactive bowel sounds, subtle guarding, no rebound, no hepatosplenomegaly, no masses. EXTREMITIES: s 2+ pulses, warm, well-perfused, no edema. NEUROLOGICAL: Cranial nerves II through XII grossly intact. Normal speech, gait not observed. PSYCH: Normal mood, normal affect. SKIN: Warm, dry, normal turgor, no rashes or lesions noted LABS Laboratory Results - last 24 hr 10/21/17 10/21/17 07:00 07:00 WBC 6.0 D RBC 3.63 L Hgb 11.4 L Hct 34.6 L MCV 95.4 MCH 31.5 MCHC 33.0 RDW 15.1 Plt Count 288 MPV 7.0 L Neutrophils % 76.2 Lymphocytes % 13.8 D Monocytes % 8.6 Eosinophils % 1.1 Basophils % 0.3 Nucleated RBC % 0 Sodium 144 Potassium 4.2 Chloride 112 H Carbon Dioxide 22 Anion Gap 10 BUN 10 D Creatinine 0.8 Creat Clearance w eGFR > 60 Random Glucose 106 Calcium 7.5 L Total Bilirubin 0.7 AST 25 D ALT 66 Alkaline Phosphatase 47 Total Protein 5.2 L Albumin 2.3 L HOSPITAL COURSE: Date of Admission:10/18/17 Date of Discharge: 10/21/17 Pt is an 87 y/o M with PMH dementia, dysphagia w/ mult aspiration PNA, R great toe osteomyelitis (x2 episodes, most recent about 6 weeks ago, tx with several weeks of PO Augmentin), PVD, UTI, HTN, anxiety, baseline incontinence who presented to ED brought by because of 3 d of malaise, cough productive of green sputum (last night only), fever 100.3 measured at home, weakness, decreased PO intake last night, and constipation (no BM x 3 d). Pt was admitted for sepsis 2/2 HCAP. Pt was treated for Severe Sepsis 2/2 HCAP. He had a recent hospitalization in [place] for 5 d for Aspiration PNA. Records were obtained from [facility] in [place] and reviewed. Pt presented with fever, malaise, weakness, cough and was found to have leukocytosis, LA 2.7 -> 1.9 s/p 2L NS in the ED. Initial CXR was sig for atalectasis. Pt was given Vanc/Zosyn in ED, and ID was consulted. Pt was continued on Zosyn for [address] revealed no obvious infectious source. UA was not suggestive of infection. With no obvious source, Zosyn was d/c'ed and pt was tried off Abx. He felt well at this point and was ultimately discharged. Pt came to the hospital with a known case of Osetomyelitis of the R great toe. He'd had multiple prior episode. This episode was recently treated 6wk ago with several weeks Augmentin. He was not symptomatic for OM. His home Tramadol was continued. Pt has hx RA and experienced a flare during his stay. Wrists, DIPs, R knee were painful and swollen. 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 He was treated with Prednisone and responded nicely. Pt had known PVD reflected by poor pulses in b/l LE. He also had developed ulcers & osteo. Management of these chronic conditions was deferred to his regular medical team in [facility]. Pt's HTN was treated with home Losartan with holding parameters. However, he continued to develop high pressures, especially in the mornings so Norvasc was added to his regimen. Pt had long standing Dementia, which was managed by PCP as outpt. Pt was given Bowel regimen: Miralax, senna, colace for constipation Minutes to complete discharge: 30 Discharge Summary Reason For Visit: SEPSIS, WEAKNESS Condition: Good - Instructions Diet, Activity, Other Instructions: You were admitted to the hospital because of sepsis. You need to follow up with your primary care doctor within 1 week. Please take plenty of breaks if going on a long car trip. If your symptoms get worse or if you develop new symptoms, return to the emergency department. Disposition: HOME - Home Medications Comprehensive Discharge Medication List: Ambulatory Orders Acetaminophen [Tylenol] 500 mg PO BID 10/18/17 Furosemide [Lasix] 40 mg PO BID 10/18/17 Losartan Potassium 50 mg PO BID 10/18/17 Prednisone 5 mg PO BID 10/18/17 Tramadol HCl 75 mg PO AM 10/18/17 Amlodipine Besylate [Norvasc -] 5 mg PO DAILY #30 tablet 10/21/17 Docusate Sodium [Colace -] 100 mg PO BID capsule 10/21/17 Polyethylene Glycol 3350 [Miralax 119 gm Btl -] 17 gm PO DAILY bottle 10/21/17 predniSONE [Deltasone -] 5 mg PO BID tablet 10/21/17 traMADol HCL [Ultram -] 25 mg PO HS tablet MDD 25 10/21/17 traMADol HCL [Ultram -] 50 mg PO Q6H PRN tablet MDD 50 10/21/17 traMADol HCL [Ultram -] 75 mg PO AM tablet MDD 75 10/21/17 This patient is new to me today: No Emergency Visit: No Critical Care patient: No - Discharge Referral Referred to [facility] No
== END 2017-10-21 15:19 | disposition home or self-care (01) | DRG 871 ==
LOC: JER 06:51 → JERBED 11:51 → J8W 19:01
PROVIDERS: ADMIT Internal Medicine; ATTEND Hospitalist
DX: A41.9 Sepsis, unspecified organism (principal); J18.9 Pneumonia, unspecified organism; J98.11 Atelectasis; M86.8X7 Other osteomyelitis, ankle and foot; E87.2 Acidosis; J90 Pleural effusion, not elsewhere classified; E87.0 Hyperosmolality and hypernatremia; L97.519 Non-pressure chronic ulcer of other part of right foot with unspecified severity; I10 Essential (primary) hypertension; I73.9 Peripheral vascular disease, unspecified; F41.9 Anxiety disorder, unspecified; F03.90 Unspecified dementia, unspecified severity, without behavioral disturbance, psychotic disturbance, mood disturbance, and anxiety; Y95 Nosocomial condition; M06.9 Rheumatoid arthritis, unspecified; K59.00 Constipation, unspecified; Z87.440 Personal history of urinary (tract) infections; R13.10 Dysphagia, unspecified
CPT/HCPCS: 36415; 71045-TC-FY; 71250-TC; 73630-TC-LT; 73630-TC-RT-FY; 73660-TC-FY; 80053; 81003; 81015; 82803; 83605; 83735; 84100; 84484; 85025; 85610; 85730; 87040; 87086; 87804; 93005; 93010; 97116-GP; 97161-GP; 99285-25; J0131; J1644; J7030